=== PATIENT | female | born 1995 | race Caucasian/White ===

== ENCOUNTER 2018-07-03 18:19 | Emergency (ER) | payer SELFPAY ==
[2018-07-03] MEDS ORDERED: Ketorolac INJ* 30 MG/ML 1 ML VIAL IV PUSH ONE (19:34)
[2018-07-03] MEDS ORDERED: NS 0.9% 1000 ML* 1,000 ML IV ONE (19:34)
--- NOTE | 2018-07-03 19:39 | ED ---
Abdominal Pain/Female - HPI Summary HPI Summary: This is scribe King [place] documenting for attending Dr. Cindy Le MD. This patient is a 22 year old F presenting to [facility] with a chief complaint of right sided, sharp abd pain since last night. Pt reports she was at work today and had to leave early because of worsening symptoms. The patient rates the pain /10 in severity. Symptoms aggravated by breathing, cough. Patient denies N/ V/D, difficulty eating, or urinary symptoms. Pt is currently menstruating. No PMHx kidney stones. 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 I, Dr. Le, personally performed the services described in this documentation as scribed in my presence and it is both accurate and complete. - History of Current Complaint Chief Complaint: EDAbdPain Stated Complaint: LWR RT QUADRANT PAIN Time Seen by Provider: 07/03/18 19:28 Hx Obtained From: Patient Onset/Duration: Gradual Onset, Lasting Days - 1 Timing: Constant Severity Initially: Moderate Severity Currently: Moderate Pain Intensity: 6 Pain Scale Used: 0-10 Numeric Location: Discrete At: RLQ Character: Sharp Aggravating Factor(s): Deep Breaths Associated Signs and Symptoms: Negative: Urinary Symptoms, Decreased Appetite, Vaginal Bleeding, Vaginal Discharge, Nausea, Vomiting, Diarrhea Allergies/Adverse Reactions: Allergies Allergy/AdvReac Type Severity Reaction Status Date / Time No Known Allergies Allergy Verified 07/03/18 18:24 Home Medications: Home Medications NK [No Home Medications Reported] 07/03/18 [History Confirmed 07/03/18] PMH/Surg Hx/FS Hx/Imm Hx History: Denies: Hx Dialysis Sensory History: Denies: Hx Deafness Infectious Disease History: No Infectious Disease History: Denies: Traveled Outside the [place] in Last 30 Days - Family History Known Family History: Positive: None - Social History Occupation: Employed Full-time Review of Systems Positive: Abdominal Pain - RLQ. Negative: Vomiting, Diarrhea, Nausea Negative: flank pain All Other Systems Reviewed And Are Negative: Yes Physical Exam - Summary Physical Exam Summary: GENERAL: Patient is a well-developed and nourished female who is lying comfortable in the stretcher. Patient is not in any acute respiratory distress. HEAD AND FACE: No signs of trauma. No ecchymosis, hematomas or skull depressions. No sinus tenderness. EYES: PERRLA, EOMI x 2, No injected conjunctiva, no nystagmus. EARS: Hearing grossly intact. Ear canals and tympanic membranes are within normal limits. MOUTH: Oropharynx within normal limits. NECK: Supple, trachea is midline, no adenopathy, no JVD, no carotid bruit, no c- spine tenderness, neck with full ROM. CHEST: Symmetric, no tenderness at palpation LUNGS: Clear to auscultation bilaterally. No wheezing or crackles. CVS: Regular rate and rhythm, S1 and S2 present, no murmurs or gallops appreciated. ABDOMEN: RLQ tenderness. No signs of distention. No masses palpated. Bowel sounds are normal. EXTREMITIES: FROM in all major joints, no edema, no cyanosis or clubbing. NEURO: Alert and oriented x 3. No acute neurological deficits. Speech is normal and follows commands. SKIN: Dry and warm Triage Information Reviewed: Yes Vital Signs On Initial Exam: Initial Vitals Temp Pulse Resp BP Pulse Ox 98.1 F 81 16 130/69 98 07/03/18 18:22 07/03/18 18:22 07/03/18 18:22 07/03/18 18:22 07/03/18 18:22 Vital Signs Reviewed: Yes Diagnostics - Vital Signs Vital Signs Temp Pulse Resp BP Pulse Ox 07/03/18 18:22 98.1 F 81 16 130/69 98 - Laboratory Result Diagrams: 07/03/18 19:48 07/03/18 19:48 Lab Statement: Any lab studies that have been ordered have been reviewed, and results considered in the medical decision making process. - CT Abd/Pelvis CT Interpretation Completed By: Radiologist - No CT findings to correlate with patient's symptomatology. Specifically no appendicitis. ED Physician has reviewed this report - Ultrasound No standard instances Ultrasound Interpretation: No Acute Changes Ultrasound Interpretation Completed By: Radiologist - Sonographically normal uterus and ovaries. ED physician has reviewed this report Abdominal Pain Fem Course/Dx - Course Course Of Treatment: This patient is a 22 year old F presenting to [facility] with a chief complaint of right sided, sharp abd pain since last night. Pt reports she was at work today and had to leave early because of worsening symptoms. The patient rates the pain /10 in severity. Symptoms aggravated by breathing, cough. Patient denies N/V/D, difficulty eating, or urinary symptoms. Pt is currently menstruating. No PMHx kidney stones. 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 CT abd/pelvis is negative. A transvaginal US reveals Sonographically normal uterus and ovaries. ED physician has reviewed this radiology report. In the ED course the patient was given IV fluids. There is nothing to explain the patients pain. Patient should follow up with their PCP within two days and take Tylenol and Motrin as needed for the pain. The patient is agreeable with this plan. - Diagnoses Provider Diagnoses: Abdominal pain Discharge - Sign-Out/Discharge Documenting (check all that apply): Patient Departure - discharge - Discharge Plan Condition: Stable Disposition: HOME Patient Education Materials: Acute Abdominal Pain (ED) [place]: [facility] [place] [facility] [place]] - 2 Days Additional Instructions: RETURN TO THE EMERGENCY DEPARTMENT FOR CHANGING OR WORSENING SYMPTOMS. FOLLOW UP WITH PCP IN 1-2 DAYS. Take Tylenol and Motrin as needed for the pain. - Attestation Statements Document Initiated by Scribe: Yes Documenting Scribe: King Cardenas Provider For Whom Scribe is Documenting (Include Credential): Cindy Le MD Scribe Attestation: King Mireles, scribed for Cindy Le MD on 07/03/18 at 2301.
[2018-07-03 19:56] LABS: ABS Basophils 0 10^3/ul (0-0.2); ABS Eosinophils 0.1 10^3/ul (0-0.6); ABS Lymphocytes 2.1 10^3/ul (1.0-4.8); ABS Monocytes 0.6 10^3/ul (0-0.8); ABS Neutrophils 3.4 10^3/ul (1.5-7.7); ABS Nucleated RBC 0 10^3/ul; Hematocrit 37 % (35-47); Hemoglobin 12.3 g/dl (12.0-16.0); Lymphocyte % 33.9 % (25-47); Mean Corpuscular HGB Conc 33 g/dl (31-36); Mean Corpuscular Hemoglobin 28 pg (27-31); Mean Corpuscular Volume 85 fL (80-97); Mean Platelet Volume 8.6 um3 (7.4-10.4); Nucleated Red Blood Cells % 0.1; Platelet Count 179 10^3/ul (150-450); Red Blood Count 4.34 10^6/ul (4.00-5.40); Red Cell Distribution Width 14 % (10.5-15); White Blood Count 6.2 10^3/ul (3.5-10.8)
[2018-07-03 20:12] LABS: EGFR Non-African American 80.7 (>60)
[2018-07-03] MEDS ORDERED: Iohexol 300* (CONTRAST) 10 ML SDV IV ONE (20:30)
[2018-07-03 21:32] LABS: Urine Appearance Clear; Urine Color Yellow
[2018-07-03 21:33] LABS: Urine Blood Negative (Negative); Urine Ketones Negative (Negative); Urine Protein Negative (Negative); Urine Urobilinogen Negative (Negative)
--- NOTE | 2018-07-03 21:33 | RAD ---
EXAM: US Pelvis, Transvaginal CLINICAL HISTORY: 22 years old, female; Pain; Pelvic pain; Patient HX: Rlq pain x1day; Additional info: Abd pain TECHNIQUE: Real-time transvaginal pelvic ultrasound (complete) with image documentation. Transvaginal imaging was used for better evaluation of the endometrium and adnexa. COMPARISON: No relevant prior studies available. FINDINGS: Uterus/cervix: Anteverted anteflexed. Measures 7.7 x 3.9 x 3.2 cm (50 cc). No myometrial masses. Late proliferative phase endometrium measuring 0.6 cm. Right ovary: Right ovary measures 4.4 x 2.2 x 1.8 cm (9.3 cc). Normal size and echogenicity with no masses. Normal follicles. Normal arterial and venous waveforms. Left ovary: Left ovary measures 3.5 x 2.5 x 1.3 cm (6.2 cc). Normal size and echogenicity with no masses. Normal follicles. Normal arterial and venous waveforms. Free fluid: No free fluid. Bladder: Empty bladder which cannot be evaluated with this probe. IMPRESSION: Sonographically normal uterus and ovaries. To contact [facility] with a general question: Operations Center - [phone] For direct physician to physician contact: Physician Hotline - [phone] [facility] ([facility] Facility ID #[id number])
--- NOTE | 2018-07-03 21:56 | RAD ---
EXAM: CT Abdomen and Pelvis With Intravenous Contrast CLINICAL HISTORY: 22 years old, female; Pain; Abdominal pain; Flank; Right lower quadrant (rlq); Additional info: Abd pain TECHNIQUE: Axial computed tomography images of the abdomen and pelvis with intravenous contrast. All CT scans at this facility use at least one of these dose optimization techniques: automated exposure control; mA and/or kV adjustment per patient size (includes targeted exams where dose is matched to clinical indication); or iterative reconstruction. Coronal and sagittal reformatted images were created and reviewed. CONTRAST: 76 mL of OMNIPAQUE 300 administered intravenously. COMPARISON: TRANS US TRANSVAGINAL 07/03/2018 8:48 PM FINDINGS: Lung bases: Normal. No mass. No consolidation. ABDOMEN: Liver: Normal. No masses. Portal and hepatic veins are patent. Gallbladder and bile ducts: Normal. No radiopaque calculi. No ductal dilation. Pancreas: Normal. No mass. No ductal dilation. Spleen: Normal. No splenomegaly. Adrenals: Normal. No mass. Kidneys and ureters: No renal solid cortical lesions, calculi, or pelvocaliectasis. Stomach and bowel: Incompletely distended grossly normal stomach. Normal caliber small bowel. No colonic masses or segmental wall thickening. PELVIS: Appendix: Normal caliber appendix without wall thickening or adjacent inflammation. Bladder: Thin-walled bladder with no focal nodularity, perivesicular stranding, or calcifications. Reproductive: Uterus and ovaries are normal. ABDOMEN and PELVIS: Intraperitoneal space: Normal. No pneumoperitoneum. No ascities. Bones/joints: No fractures. No suspicious bone lesions. Soft tissues: Normal. No hernias. Vasculature: Normal caliber aorta with no evidence of dissection or rupture. Patent IVC. Circumaortic left renal vein. Lymph nodes: Normal. No enlarged lymph nodes. IMPRESSION: No CT findings to correlate with patient's symptomatology. Specifically no appendicitis. To contact [facility] with a general question: [facility] - [phone] For direct physician to physician contact: Physician Hotline - [phone] [facility] ([facility] Facility ID #[id number])
[2018-07-03 23:15] VITALS: BP 118/61
== END 2018-07-03 23:15 | disposition home or self-care (01) ==
LOC: ED 18:19
DX: R10.31 Right lower quadrant pain (principal); Z87.442 Personal history of urinary calculi
CPT/HCPCS: 36415; 74177; 76830; 80053; 81003; 81015; 82150; 83690; 83735; 84702; 85025; 86140; 87077; 87086; 96361; 96374; 99283; J1885; Q9967